=== PATIENT | female | born 1985 | race Caucasian/White ===

== ENCOUNTER 2022-08-02 17:34 | Emergency (ER) | payer BC, SELFPAY ==
[2022-08-02] VITALS (11 sets, daily range): BP systolic 124–158; BP diastolic 83–114; PULSE 84–133; RESP 16–20; TEMP 37.5; O2SAT 97–100; BMI 20.8
--- NOTE | 2022-08-02 17:56 | ECG_ITS ---
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
--- NOTE | 2022-08-02 17:57 | CT_ITS ---
The [address] [address] Patient Name: HUSSEIN ANN MRN: [id number] date: 1985 Sex: F Assigned Patient Location: ER Current Patient Location: ED.MAIN Accession/Order Number: [id number] Exam Date: 08/02/2022 18:20 Report Date: 08/02/2022 19:35 At the request of: FELIPE PEDERSON Procedure: CT head/brain wo con CT head/brain wo con, 08/02/2022 6:20 PM EDT INDICATION: altered MS COMPARISON: None. TECHNIQUE: Axial CT images of the brain from skull base to vertex, including portions of the face and sinuses, were obtained without contrast. Multiplanar reformatted images were generated and reviewed as needed. Dose reduction techniques were achieved by using automated exposure control and/or adjustment of mA and/or kV according to patient size and/or use of iterative reconstruction technique. FINDINGS: CEREBRUM: No edema, hemorrhage, mass, acute infarction, or inappropriate atrophy. CEREBELLUM: No edema, hemorrhage, mass, acute infarction, or inappropriate atrophy. BRAINSTEM: No acute infarct, hemorrhage or gross structural abnormality. CSF SPACES: Ventricles, cisterns, and sulci are appropriate for age. No hydrocephalus, subarachnoid hemorrhage, or mass. SKULL: No mass or other significant visible lesion. SINUSES: Limited views demonstrate no significant mucosal thickening or fluid. ORBITS: Limited views are unremarkable. OTHER: None. IMPRESSION: No acute intracranial abnormality is identified. Electronically authenticated by: Sergio VICTOR Date: 08/02/2022 19:35
--- NOTE | 2022-08-02 17:58 | ED_ITS ---
HPI - General Adult General Chief complaint: Anxiety Stated complaint: Anxiety Time Seen by Provider: 08/02/22 17:45 Source: patient and family Mode of arrival: walk-in Limitations: no limitations History of Present Illness HPI narrative: [age] year old female presents with her sister for anxiety type symptoms. She's had these symptoms for two or three weeks and it's been getting worse. She was prescribed Lexapro three days ago but she didn't start it until today. It was prescribed by her PCP. The sister of the patient states that she's not acting herself and that at times she is very lucid and then other times she doesn't answer questions. She's never had anxiety to this point before. No trauma or fever and the patient herself doesn't seem to have any physical complaints Related Data Home Medications Medication Instructions Recorded Confirmed desogestrel 0.15 mg-ethinyl 1 tab PO DAILY 08/02/22 08/02/22 estradiol 0.03 mg tablet (Apri) famotidine 20 mg tablet 20 mg PO DAILY 08/02/22 08/02/22 sucralfate 1 gram tablet 1 g PO BID 08/02/22 08/02/22 Allergies Allergy/AdvReac Type Severity Reaction Status Date / Time Penicillins Allergy Intermediate Verified 08/02/22 17:44 Review of Systems ROS Narrative A ten point review of systems is negative except as noted above. Exam Narrative Exam Narrative: Nurses note and vital signs reviewed and patient is not hypoxic. General: The diminutive patient appears well and in no apparent distress. Patient is resting comfortably on cart. Skin: Warm, dry, no pallor noted. There is no rash noted. Head: Normocephalic, atraumatic Eye: Normal conjunctiva, no drainage, EOMI. PERRL Ears, Nose, Mouth, and Throat: oral mucosa is moist. Nares patent. Mouth without vesicles. Cardiovascular: Regular Rate and Rhythm, Tachycardic Respiratory: Patient is in no distress, no accessory muscle use, lungs are clear to auscultation, no wheezing, rales or rhonchi Back: non-tender GI: no tenderness to palpation, no masses appreciated. No rebound, guarding, or rigidity noted. Musculoskeletal: The patient has no evidence of calf tenderness, no pitting edema, symmetrical pulses noted bilaterally Neurological: A&O x4, normal speech; Moves all four extremities equally. There are times when she'll answer all my questions and then there are times when she remained silent and doesn't answer. Psychiatric: Cooperative Constitutional Vital Signs - 24 hr 08/02/22 17:39 Temperature 99.5 F Pulse Rate [Monitor] 133 H Respiratory Rate 20 Blood Pressure [Right Arm] 136/111 H Pulse Oximetry 100 Oxygen Delivery Method Room Air Course Vital Signs Vital signs: Vital Signs Temperature 99.5 F 08/02/22 17:39 Pulse Rate 133 H 08/02/22 17:39 Respiratory Rate 20 08/02/22 17:39 Blood Pressure 136/111 H 08/02/22 17:39 Pulse Oximetry 100 08/02/22 17:39 Oxygen Delivery Method Room Air 08/02/22 17:39 Temperature 99.5 F 08/02/22 17:39 Pulse Rate 133 H 08/02/22 17:39 Respiratory Rate 20 08/02/22 17:39 Blood Pressure 136/111 H 08/02/22 17:39 Pulse Oximetry 100 08/02/22 17:39 Oxygen Delivery Method Room Air 08/02/22 17:39 Medical Decision Making MDM Narrative Medical decision making narrative: Tests are pending and the patient is signed out to Dr. Baig at 7 PM. Differential Diagnosis Differential Diagnosis: Anxiety, acute kidney injury, substance abuse, anemia Lab Data Labs: Lab Results 08/02/22 Range/Units 18:09 WBC 8.7 (4.0-11.0) 10^3/uL RBC 4.24 (4.20-5.40) 10^6/uL Hgb 13.7 (12.0-16.0) g/dL Hct 38.1 (36.0-48.0) % MCV 89.9 (81.0-99.0) fL MCH 32.3 (26.7-34.0) pg MCHC 36.0 H (29.9-35.2) g/dL RDW 11.8 (11.0-15.0) % Plt Count 253 (150-450) 10^3/uL MPV 10.5 (9.5-13.5) fL Neut % (Auto) 76.0 H (43.0-75.0) % Lymph % (Auto) 14.5 L (20.5-60.0) % [place] % (Auto) 7.9 (1.7-12.0) % Eos % (Auto) 0.8 L (0.9-7.0) % Baso % (Auto) 0.3 (0.2-2.0) % Neut # (Auto) 6.6 H (1.4-6.5) 10^3/uL Lymph # (Auto) 1.3 (1.2-3.8) 10^3/uL [place] # (Auto) 0.7 (0.3-0.8) 10^3/uL Eos # (Auto) 0.1 (0.0-0.7) 10^3/uL Baso # (Auto) 0.0 (0.0-0.1) 10^3/uL Abs Immat Gran (auto) 0.04 H (0.00-0.03) 10^3/uL Imm/Tot Granulo (auto) 0.5 (0.0-0.5) % Sodium 136 (136-145) mmol/L Potassium 3.0 L (3.5-5.1) mmol/L Chloride 100 (98-107) mmol/L Carbon Dioxide 24.6 (21.0-32.0) mmol/L Anion Gap 14.4 BUN 6.0 L (7.0-18.0) mg/dL Creatinine 0.59 (0.55-1.02) mg/dL Est GFR ( Amer) >60 (>=60) Est GFR (Non-Af Amer) >60 (>=60) BUN/Creatinine Ratio 10.2 Glucose 162 H (74-106) mg/dL Calcium 8.9 (8.5-10.1) mg/dL Total Bilirubin 0.4 (0.2-1.0) mg/dL AST 17 (15-37) U/L Alkaline Phosphatase 56 (46-116) U/L Total Protein 7.6 (6.4-8.2) g/dL Albumin 4.3 (3.4-5.0) g/dL Globulin 3.3 g/dL Albumin/Globulin Ratio 1.3 Salicylates <2.8 (<=19.9) mg/dL Acetaminophen <2.0 L (10.0-30.0) ug/mL Ethanol Quant <3 mg/dL ECG Data Attestation: I personally reviewed and interpreted this ECG as follows: (EKG on my interpretation shows sinus tachycardia with rate of 122) Discharge Plan Discharge Chief Complaint: Anxiety Clinical Impression: Acute anxiety Prescriptions / Home Meds: No Action desogestrel-ethinyl estradiol [Apri] 0.15-0.03 mg tablet 1 tab PO DAILY sucralfate 1 gram tablet 1 g PO BID famotidine 20 mg tablet 20 mg PO DAILY Referrals: TITO LEAHY [Primary Care Provider] - 1 week
[2022-08-02 18:21] LABS: Basophils Percent Auto 0.3 % (0.2-2.0); Eosinophils Absolute Auto 0.1 10^3/uL (0.0-0.7); Eosinophils Percent Auto 0.8 % (0.9-7.0); Hematocrit 38.1 % (36.0-48.0); Hemoglobin 13.7 g/dL (12.0-16.0); Immature Granulocytes Abs Auto 0.04 10^3/uL (0.00-0.03); Immature Granulocytes Pct Auto 0.5 % (0.0-0.5); Lymphocytes Absolute Auto 1.3 10^3/uL (1.2-3.8); Lymphocytes Percent Auto 14.5 % (20.5-60.0); Mean Corpuscular Hemoglobin 32.3 pg (26.7-34.0); Mean Corpuscular Volume 89.9 fL (81.0-99.0); Mean Platelet Volume 10.5 fL (9.5-13.5); Monocytes Absolute Auto 0.7 10^3/uL (0.3-0.8); Monocytes Percent Auto 7.9 % (1.7-12.0); Neutrophils Absolute Auto 6.6 10^3/uL (1.4-6.5); Platelet Count 253 10^3/uL (150-450); Red Blood Count 4.24 10^6/uL (4.20-5.40); Red Cell Distribution Width 11.8 % (11.0-15.0); White Blood Count 8.7 10^3/uL (4.0-11.0)
[2022-08-02 18:29] LABS: Salicylate <2.8 mg/dL (<=19.9)
[2022-08-02 18:35] LABS: Acetaminophen <2.0 ug/mL (10.0-30.0)
[2022-08-02 18:36] LABS: Albumin Globulin Ratio 1.3; Albumin Level 4.3 g/dL (3.4-5.0); Alkaline Phosphatase 56 U/L (46-116); Anion Gap 14.4; Aspartate Amino Transferase 17 U/L (15-37); BUN Creatinine Ratio 10.2; Bilirubin Total 0.4 mg/dL (0.2-1.0); Calcium 8.9 mg/dL (8.5-10.1); Carbon Dioxide 24.6 mmol/L (21.0-32.0); Chloride 100 mmol/L (98-107); Estimated GFR (African America >60 (>=60); Estimated GFR (Non-African Ame >60 (>=60); Globulin 3.3 g/dL; Glucose 162 mg/dL (74-106); Sodium 136 mmol/L (136-145); Total Protein 7.6 g/dL (6.4-8.2)
[2022-08-02 18:40] LABS: Ethanol <3 mg/dL
[2022-08-02 18:46] LABS: Alanine Aminotransferase 21 U/L (14-59)
[2022-08-02] MEDS: 0.9 % SODIUM CHLORIDE 1,000 ML 1000 ML IV (18:52)
[2022-08-02 18:58] LABS: Bilirubin Urine NEGATIVE (NEGATIVE); Blood Urine NEGATIVE (NEGATIVE); Clarity Urine CLEAR (CLEAR); Color Urine LT. YELLOW (YELLOW); Glucose Urine UA NEGATIVE (NEGATIVE); Ketones Urine 40 mg/dL (NEGATIVE); Leukocyte Esterase Urine NEGATIVE (NEGATIVE); Nitrite Urine NEGATIVE (NEGATIVE); Protein Urine NEGATIVE (NEG/TRACE); Urobilinogen Urine 0.2 EU/dL (0.2-1.0)
[2022-08-02 18:59] LABS: HCG Qualitative Urine* NEGATIVE (NEGATIVE)
[2022-08-02 19:00] LABS: Urine Microscopic Indicated NO
[2022-08-02 19:07] LABS: Amphetamine Screen Urine NEGATIVE (NEGATIVE); Barbiturates Screen Urine NEGATIVE (NEGATIVE); Benzodiazepines Screen Urine NEGATIVE (NEGATIVE); Buprenorphine Screen Urine NEGATIVE (NEGATIVE); Cannabinoid Screen Urine NEGATIVE (NEGATIVE); Cocaine Screen Urine NEGATIVE (NEGATIVE); Methadone Screen Urine NEGATIVE (NEGATIVE); Methamphetamines Screen Urine NEGATIVE (NEGATIVE); Opiate Screen Urine NEGATIVE (NEGATIVE); Oxycodone Screen Urine NEGATIVE (NEGATIVE); Phencyclidine Screen Urine NEGATIVE (NEGATIVE); Tricyclic Antidepressant Urine NEGATIVE (NEGATIVE)
--- NOTE | 2022-08-02 19:15 | ED_ITS ---
HPI - General Adult General Chief complaint: Anxiety Stated complaint: Anxiety Time Seen by Provider: 08/02/22 17:45 Source: patient and family Mode of arrival: walk-in Limitations: no limitations History of Present Illness HPI narrative: This 37-year-old female was signed out to me at shift change. She presents for evaluation of anxiety. She is here with her sister. The sister gives the history that the patient has had a rough one and a half weeks. She was recently diagnosed with a thyroid problem, a gallbladder polyp, a urinary tract infection and a yeast infection. She has had history of anxiety throughout her life but it has been increasingly getting worse. The patient was seen by her family physician, Dr. Lang Smith, he prescribed her Lexapro and she took her 1st dose today at 4:30 PM. She also had episodes today with bizarre behavior where she would be having episodes of rapid pressured speech that was tangential and then have an episode of near catatonia where she did not speak and stared off into space. The patient's sister has a video of her doing this while sitting in the emergency department. She has not verbalized any homicidal or suicidal ideation. The sister does not think she is under a great degree of stress. Shortly after arrival the patient sister came out and stated that a seizure. We went to the room and found her awake, alert, talking with grimacing facial gestures and uncontrollable shaking of her arms, head and legs. She did not lose consciousness throughout this entire process. She appeared to be having a dystonic reaction likely to the Lexapro. She was medicated with 1 mg of IV Ativan and 25 mg of IV Benadryl with decrease in the symptoms. On reevaluation she is resting comfortably, sleeping but easily arousable. The patient slept after the Ativan and Benadryl and was arousable however whenever she was awake and her pulse went up into the 150s to 160s Her blood pressure also went up. She was medicated with 2.5 mg of IV Lopressor. She is medically cleared for psychiatric evaluation however in light of the episodes of hemodynamic instability with tachycardia and elevated blood pressure I feel it is in her best interest to be monitored overnight. I am unclear if this is still related to her taking the 1st dose of Lexapro earlier today, however feel monitoring overnight is in her best interest. She denies any suicidal or homicidal ideation. I will speak to the hospitalist about observation admission. In my opinion there is no need to pink slip her. 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 He suggested that she would need a structural echocardiogram. He Suggested transfer. I discussed this with the patient and her sister. The patient does recall having a cardiac workup in the past but cannot recall if she was younger or if it was recent. Her sister does not recall that either. She does know that she did not have any cardiac intervention or cardiac surgery and is not on any cardiac medications. The patient started to become extremely anxious after hearing this and complained of chest pain again. Her EKG was repeated and was a sinus tachycardia at 119 and otherwise unchanged. Her troponin is normal. She was placed on normal saline at 100 mL an hour and still becomes tachycardic at times with stimulation or agitation. Her sister did inform me that she does have a history of obsessive-compulsive disorder and in the past would wash her money with a toothbrush and soap and water. The case was discussed with the hospitalist at [facility] and the patient is accepted for transfer. Dr Terry is the accepting hospitalist at [facility] Related Data Home Medications Medication Instructions Recorded Confirmed desogestrel 0.15 mg-ethinyl 1 tab PO DAILY 08/02/22 08/02/22 estradiol 0.03 mg tablet (Apri) famotidine 20 mg tablet 20 mg PO DAILY 08/02/22 08/02/22 sucralfate 1 gram tablet 1 g PO BID 08/02/22 08/02/22 Allergies Allergy/AdvReac Type Severity Reaction Status Date / Time escitalopram [From Lexapro] Allergy Severe Verified 08/02/22 19:38 Penicillins Allergy Intermediate Verified 08/02/22 17:44 [facility] Medical History (Updated 08/03/22 @ 00:55 by Leatha Baig MD) Exam Constitutional Vital Signs - 24 hr 08/02/22 17:39 08/02/22 19:22 08/02/22 19:39 Temperature 99.5 F Pulse Rate 104 H Pulse Rate [Monitor] 133 H Respiratory Rate 20 16 Blood Pressure 155/105 H Blood Pressure [Right Arm] 136/111 H Pulse Oximetry 100 100 Oxygen Delivery Method Room Air Room Air 08/02/22 19:50 08/02/22 20:04 08/02/22 20:14 Temperature Pulse Rate 100 H 97 H 92 H Pulse Rate [Monitor] Respiratory Rate 16 18 Blood Pressure 158/109 H 144/114 H Blood Pressure [Right Arm] Pulse Oximetry 100 98 Oxygen Delivery Method 08/02/22 20:50 08/02/22 21:30 08/02/22 22:50 Temperature Pulse Rate 90 84 113 H Pulse Rate [Monitor] Respiratory Rate 16 16 Blood Pressure 124/83 H 124/94 H Blood Pressure [Right Arm] Pulse Oximetry 97 97 Oxygen Delivery Method 08/02/22 23:20 08/03/22 00:47 08/03/22 01:18 Temperature Pulse Rate 88 105 H Pulse Rate [Monitor] Respiratory Rate 18 16 Blood Pressure 154/114 H Blood Pressure [Right Arm] Pulse Oximetry Oxygen Delivery Method Room Air 08/03/22 01:36 Temperature Pulse Rate Pulse Rate [Monitor] Respiratory Rate 16 Blood Pressure 149/97 H Blood Pressure [Right Arm] Pulse Oximetry Oxygen Delivery Method Course Vital Signs Vital signs: Vital Signs Temperature 99.5 F 08/02/22 17:39 Pulse Rate 133 H 08/02/22 17:39 Respiratory Rate 20 08/02/22 17:39 Blood Pressure 136/111 H 08/02/22 17:39 Pulse Oximetry 100 08/02/22 17:39 Oxygen Delivery Method Room Air 08/02/22 17:39 Temperature 99.5 F 08/02/22 17:39 Pulse Rate 105 H 08/03/22 01:18 Respiratory Rate 16 08/03/22 01:36 Blood Pressure 149/97 H 08/03/22 01:36 Pulse Oximetry 97 08/02/22 21:30 Oxygen Delivery Method Room Air 08/03/22 00:47 Medical Decision Making Lab Data Labs: Lab Results 08/02/22 08/02/22 08/02/22 Range/Units 18:00 18:09 18:31 WBC 8.7 (4.0-11.0) 10^3/uL RBC 4.24 (4.20-5.40) 10^6/uL Hgb 13.7 (12.0-16.0) g/dL Hct 38.1 (36.0-48.0) % MCV 89.9 (81.0-99.0) fL MCH 32.3 (26.7-34.0) pg MCHC 36.0 H (29.9-35.2) g/dL RDW 11.8 (11.0-15.0) % Plt Count 253 (150-450) 10^3/uL MPV 10.5 (9.5-13.5) fL Neut % (Auto) 76.0 H (43.0-75.0) % Lymph % (Auto) 14.5 L (20.5-60.0) % [place] % (Auto) 7.9 (1.7-12.0) % Eos % (Auto) 0.8 L (0.9-7.0) % Baso % (Auto) 0.3 (0.2-2.0) % Neut # (Auto) 6.6 H (1.4-6.5) 10^3/uL Lymph # (Auto) 1.3 (1.2-3.8) 10^3/uL [place] # (Auto) 0.7 (0.3-0.8) 10^3/uL Eos # (Auto) 0.1 (0.0-0.7) 10^3/uL Baso # (Auto) 0.0 (0.0-0.1) 10^3/uL Abs Immat Gran (auto) 0.04 H (0.00-0.03) 10^3/uL Imm/Tot Granulo (auto) 0.5 (0.0-0.5) % D-Dimer <0.19 (<=0.59) mg/L FEU Sodium 136 (136-145) mmol/L Potassium 3.0 L (3.5-5.1) mmol/L Chloride 100 (98-107) mmol/L Carbon Dioxide 24.6 (21.0-32.0) mmol/L Anion Gap 14.4 BUN 6.0 L (7.0-18.0) mg/dL Creatinine 0.59 (0.55-1.02) mg/dL Est GFR ( Amer) >60 (>=60) Est GFR (Non-Af Amer) >60 (>=60) BUN/Creatinine Ratio 10.2 Glucose 162 H (74-106) mg/dL Calcium 8.9 (8.5-10.1) mg/dL Total Bilirubin 0.4 (0.2-1.0) mg/dL AST 17 (15-37) U/L ALT 21 (14-59) U/L Alkaline Phosphatase 56 (46-116) U/L Troponin I High Sens <4.0 L (4.0-51.3) pg/mL Total Protein 7.6 (6.4-8.2) g/dL Albumin 4.3 (3.4-5.0) g/dL Globulin 3.3 g/dL Albumin/Globulin Ratio 1.3 TSH 5.486 H (0.358-3.740) uIU/mL Urine Color Lt. yellow (YELLOW) Urine Clarity Clear (CLEAR) Urine pH 6.0 (5.0-9.0) Ur Specific [place] 1.010 (1.005-1.025) Urine Protein Negative (NEG/TRACE) mg/dL Urine Glucose (UA) Negative (NEGATIVE) mg/dL Urine Ketones 40 A (NEGATIVE) mg/dL Urine Occult Blood Negative (NEGATIVE) Urine Nitrite Negative (NEGATIVE) Urine Bilirubin Negative (NEGATIVE) Urine Urobilinogen 0.2 (0.2-1.0) EU/dL Ur Leukocyte Esterase Negative (NEGATIVE) Urine HCG, Qual Negative (NEGATIVE) Salicylates <2.8 (<=19.9) mg/dL Urine Opiates Screen Negative (NEGATIVE) Ur Buprenorphine Scrn Negative (NEGATIVE) Ur Oxycodone Screen Negative (NEGATIVE) Urine Methadone Screen Negative (NEGATIVE) Ur Propoxyphene Screen Negative (NEGATIVE) Acetaminophen <2.0 L (10.0-30.0) ug/mL Ur Barbiturates Screen Negative (NEGATIVE) U Tricyclic Antidepress Negative (NEGATIVE) Ur Phencyclidine Scrn Negative (NEGATIVE) Ur Amphetamines Screen Negative (NEGATIVE) U Methamphetamines Scrn Negative (NEGATIVE) U Benzodiazepines Scrn Negative (NEGATIVE) Urine Cocaine Screen Negative (NEGATIVE) U Cannabinoids Screen Negative (NEGATIVE) Ethanol Quant <3 mg/dL Critical Care Time Critical Care Time Total Critical Care Time: 45 Discharge Plan Discharge Chief Complaint: Anxiety Clinical Impression: Acute anxiety, Tachycardia, paroxysmal, Hypokalemia Patient Disposition: [facility] Time of Disposition Decision: 00:55 Discharge Location: [facility] Condition: Fair Mode of Transportation: EMS
--- NOTE | 2022-08-02 19:19 | PC.NURSE ---
upon arrival pt's family member yells out that pt is having a seizure. Upon checking on pt there is no seizure activity but pt is showing signs of a dystonic reaction. 1mg of Ativan given followed by a stat 25mg IV Benadryl. Pt reports some nausea and a nausea med ordered. 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
[2022-08-02] MEDS: ONDANSETRON PF 4 MG/2 ML VIAL IV (19:31)
[2022-08-02] MEDS: LORAZEPAM 2 MG/ML 1 ML VIAL IV (19:31)
[2022-08-02] MEDS: DIPHENHYDRAMINE HCL 50 MG/ML (1ML) VIAL 25 MG IV (19:31)
[2022-08-02 20:02] LABS: D Dimer <0.19 mg/L FEU (<=0.59)
[2022-08-02 20:21] LABS: Thyroid Stimulating Hormone 5.486 uIU/mL (0.358-3.740)
[2022-08-02] MEDS: POTASSIUM CHLORIDE 10 MEQ ER TABLET 20 MEQ PO (21:43)
[2022-08-02] MEDS: METOPROLOL TARTRATE 5 MG/5 ML VIAL 2.5 MG IVP (22:19)
[2022-08-02 23:55] LABS: Troponin I High Sensitivity <4.0 pg/mL (4.0-51.3)
[2022-08-03] MEDS: 0.9 % SODIUM CHLORIDE 1,000 ML 100 ML IV (00:12)
[2022-08-03] MEDS: ONDANSETRON PF 4 MG/2 ML VIAL IV (00:26)
[2022-08-03] MEDS: MORPHINE SULFATE 2 MG/ML SYRINGE IV (00:26)
--- NOTE | 2022-08-03 01:17 | PC.NURSE ---
called lab to ask about the Trop result. Lab tach informed this nurse that the Trop was less then 4.0 and also informed this nurse this is a norm results. VIN GARCIA informed
[2022-08-03 01:18] VITALS: PULSE 105; RESP 16
--- NOTE | 2022-08-03 01:31 | ECG_ITS ---
The [facility] Test Date: 2022-08-02 Pat Name: HUSSEIN ANN Department: Room: - Gender: Female Validation Architect: : 1985 Requested By: TITO LEAHY Order Number: [id number] Reading MD: VIKRAM GODFREY Measurements Intervals [place] Rate: 109 P: 75 [place]: 98 QRS: -57 QRSD: 92 T: 35 QT: 352 QTc: 416 Interpretive Statements 1120 Sinus tachycardia 2210 Short [place] interval [address] depression 4164 Twave abnormality, possible anterior ischemia 7200 Abnormal left axis deviation 9150 abnormal ECG Electronically Signed On 08-03-2022 7:02:30 EDT by VIKRAM GODFREY
[2022-08-03 01:36] VITALS: BP 149/97; RESP 16
[2022-08-03 02:26] VITALS: BP 132/88; PULSE 80; RESP 18
[2022-08-03 02:49] VITALS: BP 107/68
--- NOTE | 2022-08-03 03:07 | PC.NURSE ---
Report to JAQUAN Miles [place] [facility] [phone] complete.
== END 2022-08-03 03:09 | disposition short-term general hospital (02) ==
PROVIDERS: Emergency Medicine; Emergency Provider Emergency Medicine; PCP Family Medicine
DX: F41.9 Anxiety disorder, unspecified (principal)
CPT/HCPCS: 36415; 70450; 80053; 80179; 80307; 80320; 80329; 81003; 84443; 84484; 84703; 85025; 85378; 93005; 96374; 96375; 96376; 99285